=== PATIENT | female | born 1995 | race American Indian/Alaskan Native ===

== ENCOUNTER 2017-04-12 09:58 | Outpatient (CLI) | payer MEDICAID ==
[2017-04-12] MEDS ORDERED: LACTATED RINGERS 0 ML ONE (10:12)
[2017-04-12 10:15] VITALS: BP 116/77
[2017-04-12] MEDS ORDERED: LACTATED RINGERS 500 ML IV ONE ×2 (11:40→12:29)
[2017-04-12 12:13] LABS: Bilirubin,Urine NEG (Negative); Blood,Urine NEG (Negative); Ketones,Urine NEG (Negative); Leukocyte Esterase,Urine NEG (Negative); Nitrite,Urine NEG (Negative); Protein,Urine <15 mg/dL mg/dL (Negative); Urobilinogen,Urine < 2.0 mg/dL (<2.0)
[2017-04-12] MEDS ORDERED: BRETHINE ONE (12:30)
[2017-04-12] MEDS ORDERED: BRETHINE SUB-Q SCH (13:00)
== END 2017-04-12 13:15 | disposition home or self-care (01) ==
LOC: TRG 09:58
PROVIDERS: ATTEND Obstetrics & Gynecology
DX: O47.03 False labor before 37 completed weeks of gestation, third trimester (principal); Z3A.31 31 weeks gestation of pregnancy
CPT/HCPCS: 59025; 81001; 96360; J3105; J7120

== ENCOUNTER 2017-06-08 23:39 | Inpatient (IN) | payer MEDICAID ==
[2017-06-09] MEDS ORDERED: STADOL IV PRN (00:15)
[2017-06-09] MEDS ORDERED: ZOFRAN IV PRN ×2 (00:15→10:50)
[2017-06-09] MEDS ORDERED: SUBLIMAZE IV PRN (00:15)
[2017-06-09] MEDS ORDERED: MINERAL OIL PO PRN (00:15)
[2017-06-09] MEDS ORDERED: BRETHINE IVP PRN (00:15)
[2017-06-09] MEDS ORDERED: XYLOCAINE 2% INFILTRATI ONE (00:15)
[2017-06-09] MEDS ORDERED: ePHEDrine SULFATE IV PRN ×2 (00:15→04:46)
[2017-06-09] MEDS ORDERED: NARCAN 0.4 MG/1 ML IV PRN (00:15)
[2017-06-09] MEDS ORDERED: BRETHINE SUB-Q PRN (00:15)
[2017-06-09] MEDS ORDERED: PHENERGAN PR PRN ×2 (00:15→10:50)
--- NOTE | 2017-06-09 00:19 | History and Physical Report ---
History of Present Illness Date of examination: 06/09/17 Chief complaint: Labor History of present illness: Pt is a 21yo WF EDC 06/09/17; EGA 39 6/7 weeks presents to L&D complaining of RUC's q 3-4mins. She received care at [facility] since 11 weeks, and course has been unremarkable. records are available and GBS is Negative. Past History Past Medical History: no pertinent history Past Surgical History: no surgical history [employer] History: abnormal PAP smear Family/Genetic History: none Social history: no significant social history, single - Obstetrical History Expected Date of Delivery: 06/10/17 Actual Gestation: 39 Week(s) 6 Day(s) : 2 Medications and Allergies Allergies Allergy/AdvReac Type Severity Reaction Status Date / Time Sulfa (Sulfonamide Allergy Swelling Verified 06/08/17 23:51 Antibiotics) Home Medications Medication Instructions Recorded Confirmed Last Taken Type No Known Home Medications [No 06/09/17 06/09/17 Unknown History Reported Home Medications] Review of Systems All systems: negative - Vital Signs Vital signs: Vital Signs Temp Resp 97.9 F 20 06/08/17 23:56 06/08/17 23:56 Temp Pulse Resp BP Pulse Ox 97.9 F 75 20 138/85 97 06/08/17 23:56 06/09/17 00:15 06/08/17 23:56 06/08/17 23:59 06/09/17 00:15 - Physical Exam Breasts: Positive: deferred Cardiovascular: Regular rate Lungs: Positive: Clear to auscultation Abdomen: Positive: normal appearance Genitourinary (Female): Positive: normal external genitalia Vagina: Positive: normal moisture Uterus: Positive: enlarged Extremities: Positive: normal - Obstetrical FHR: category 1 Uterine Contraction Monitor Mode: External Cervical Dilatation: 3.5 Cervical Effacement Percentage: 70 station: -2 Uterine Contraction Pattern: Regular Uterine Tone Measurement Phase: Contraction Uterine Contraction Intensity: Moderate Results Result Diagrams: 06/09/17 00:35 All other labs normal. Assessment and Plan - Patient Problems (1) 39 weeks gestation of Onset Date: 06/09/17 Current Visit: Yes Status: Acute Plan to address problem: A: IUP @ 39 6/7 weeks in labor GBS Negative P: Admit to L&D for expectant vaginal delivery
[2017-06-09] MEDS ORDERED: PITOCin/NS 20 UNIT/1000ML DRIP 20 UNITS/1,000 ML BAG IV SCH ×2 (01:00→11:00)
[2017-06-09] MEDS ORDERED: PITOCin/NS 30 UNIT/500ML 30 UNITS/500 ML BAG IV SCH ×2 (01:00)
[2017-06-09 01:23] LABS: Hematocrit 33.6 % (30.3-42.9); Hemoglobin 11.1 gm/dl (10.1-14.3); Mean Corpuscular HGB Conc 33 % (30-34); Mean Corpuscular Hemoglobin 25 pg (28-32); Mean Corpuscular Volume 76 fl (79-97); Platelet Count 225 K/mm3 (140-440); Red Blood Count 4.45 M/mm3 (3.65-5.03)
[2017-06-09] MEDS: LACTATED RINGERS 1,000 ML IV SCH ×3 (01:30→05:38)
[2017-06-09] MEDS ORDERED: ePHEDrine SULFATE ONE (04:23)
[2017-06-09] MEDS ORDERED: NARCAN 2 MG/2 ML IV PRN (04:46)
--- NOTE | 2017-06-09 04:46 | Anesthesia Consultation ---
Anesthesia Consult and Med Hx Date of service: 06/09/17 - Airway Anesthetic Teeth Evaluation: Good ROM Head & Neck: Adequate Mental/Hyoid Distance: Adequate Mallampati Class: Class II Intubation Access Assessment: Good - Pulmonary Exam CTA: Yes - Cardiac Exam Cardiac Exam: No Murmur - Pre-Operative Health Status ASA Pre-Surgery Classification: ASA2 Proposed Anesthetic Plan: Epidural - Pulmonary Hx Asthma: No COPD: No Hx Pneumonia: No - Cardiovascular System Hx Hypertension: No - Central Nervous System Hx Seizures: No Hx Psychiatric Problems: No - Endocrine Hx Renal Disease: No Hx End Stage Renal Disease: No Hx Hypothyroidism: No Hx Hyperthyroidism: No - Hematic Hx Anemia: Yes Hx Sickle Cell Disease: No - Other Systems Hx Alcohol Use: No
[2017-06-09] MEDS ORDERED: fentaNYL-BUPIV 2 MCG/ML-0.125% 200 MCG/100 ML BAG EPIDURAL SCH (05:00)
--- NOTE | 2017-06-09 10:48 | Procedure Note ---
OB Delivery Note - Delivery Date of Delivery: 06/09/17 Surgeon: ALISA BENTON Estimated blood loss: 300cc - Vaginal Delivery presentation: vertex Delivery position: OP Delivery induction: oxytocin Delivery augmentation: rupture of membranes Delivery monitor: external FHT, external uterine Route of delivery: Delivery placenta: spontaneous Delivery cord: 3 umbilical vessels Episiotomy: none Delivery laceration: 2nd degree (vaginal/perineal) Delivery repair: vicryl Anesthesia: epidural Delivery comments: Infant delivered OP and placed on Mom's chest for [id number] bonding and delayed cord clamping. - Infant A at 1 minute: 8 at 5 minutes: 9 Infant Gender: Male (3623gms)
[2017-06-09] MEDS ORDERED: BENADRYL PO PRN (10:50)
[2017-06-09] MEDS ORDERED: TYLENOL PO PRN (10:50)
[2017-06-09] MEDS ORDERED: LANSINOH TP PRN (10:50)
[2017-06-09] MEDS ORDERED: PHENERGAN PO PRN (10:50)
[2017-06-09] MEDS ORDERED: TUCKS PAD TP PRN (10:50)
[2017-06-09] MEDS ORDERED: DULCOLAX PR PRN (10:50)
[2017-06-09] MEDS ORDERED: NORCO 5/325 PO PRN (10:50)
[2017-06-09] MEDS ORDERED: SODIUM CHLORIDE FLUSH SYRINGE 10 ML IV NR (11:00)
[2017-06-09] MEDS ORDERED: DERMOPLAST TP PRN (16:19)
[2017-06-09] MEDS: MOTRIN PO SCH ×2 (16:48→23:31)
[2017-06-09] MEDS ORDERED: MILK OF MAGNESIA PO PRN (22:00)
[2017-06-09 22:51] LABS: Hematocrit 27.9 % (30.3-42.9); Hemoglobin 9.2 gm/dl (10.1-14.3)
[2017-06-09] MEDS: FEOSOL PO SCH (23:30)
[2017-06-09] MEDS: COLACE PO SCH (23:30)
[2017-06-10] MEDS: MOTRIN PO SCH ×4 (05:13→22:33)
--- NOTE | 2017-06-10 07:38 | Progress Note ---
Assessment and Plan PPD#1 s/p -Doing well P: -Routine care -Anticipate discharge in 24-48 hours - Patient Problems (1) (normal spontaneous vaginal delivery) Current Visit: Yes Status: Acute Subjective - Subjective Date of service: 06/10/17 Principal diagnosis: PPD# 1 Interval history: Since then examined, stable doing well Patient reports: appetite normal, voiding normally, pain well controlled, flatus , ambulating normally, no dizzy ambulation, no nauseated [place]: doing well Objective - Vital Signs Latest vital signs: Vital Signs Temp Pulse Resp BP Pulse Ox 06/10/17 00:00 98.6 F 77 16 134/84 06/09/17 19:15 98.6 F 69 16 129/77 06/09/17 18:30 98.7 F 88 20 131/77 06/09/17 16:48 20 06/09/17 16:28 98.2 F 70 20 137/83 06/09/17 13:30 98.7 F 66 20 142/89 06/09/17 12:27 67 144/72 06/09/17 12:21 69 184/96 06/09/17 12:06 73 124/84 06/09/17 11:51 77 129/81 06/09/17 11:45 76 L 06/09/17 11:36 77 139/92 06/09/17 11:21 76 136/93 06/09/17 11:06 76 130/82 06/09/17 10:51 95 H 132/68 06/09/17 10:37 29 L 0 L 06/09/17 10:36 99 H 139/90 06/09/17 10:21 90 142/88 06/09/17 10:15 90 134/77 06/09/17 10:09 141 H 208/136 06/09/17 09:52 103 H 135/90 06/09/17 09:37 98 H 126/73 06/09/17 09:23 88 88 06/09/17 09:18 77 96 06/09/17 09:16 79 92 06/09/17 09:13 100 H 98 06/09/17 09:08 89 96 06/09/17 09:06 86 146/96 06/09/17 09:03 76 99 06/09/17 08:58 130 H 99 06/09/17 08:53 83 99 06/09/17 08:51 79 144/94 06/09/17 08:48 82 98 06/09/17 08:43 81 99 06/09/17 08:38 82 99 06/09/17 08:37 83 138/91 06/09/17 08:33 83 99 06/09/17 08:28 82 99 06/09/17 08:23 89 99 06/09/17 08:21 83 136/91 06/09/17 08:18 103 H 99 06/09/17 08:13 89 100 06/09/17 08:08 100 H 99 06/09/17 08:07 86 137/95 06/09/17 08:03 93 H 99 06/09/17 07:58 83 99 06/09/17 07:53 71 99 06/09/17 07:52 85 131/99 06/09/17 07:48 75 99 06/09/17 07:43 86 100 Intake and Output 06/09/17 06/10/17 06/10/17 22:59 06:59 14:59 Intake Total 300 Balance 300 Intake: Intake, Free Water 300 - Exam Abdomen: Present: normal appearance, soft. Absent: distention, tenderness, guarding, rigidity Uterus: Present: fundal height below umbilicus. Absent: tenderness Extremities: Present: normal - Labs Labs: Abnormal lab results 06/09/17 Range/Units 22:38 Hgb 9.2 L (10.1-14.3) gm/dl Hct 27.9 L (30.3-42.9) %
--- NOTE | 2017-06-10 07:41 | Discharge Summary ---
Providers - Providers Date of Admission: 06/09/17 01:17 Date of discharge: 06/11/17 Attending physician: ALISA BENTON Primary care physician: ALISA BENTON Hospitalization Reason for admission: active labor, IUP at term Delivery: Episiotomy: none Laceration: 2nd degree Other procedures: none Discharge diagnosis: IUP at term delivered [place] baby: male Condition at discharge: Good Disposition: DC-01 TO HOME OR SELFCARE - Discharge Diagnoses (1) (normal spontaneous vaginal delivery) Status: Acute Plan - Discharge Medications Prescriptions: Ibuprofen [Motrin 600 MG tab] 600 mg PO Q8H PRN #30 tablet PRN Reason: Pain Multivitamin with Iron [Multivitamins with Iron] 1 each PO DAILY #30 tablet - Provider Discharge Summary Activity: no sex for 6 weeks, no heavy lifting 4 weeks, no strenuous exercise Diet: routine Additional instructions: [] Smoking cessation referral if applicable(refer to patient education folder for contact #) [] Refer to [facility]'s [facility] Booklet Call your doctor immediately for: * Fever > 100.5 * Heavy vaginal bleeding ( >1 pad per hour) * Severe persistent headache * Shortness of breath * Reddened, hot, painful area to leg or breast * Drainage or odor from incision. * Keep incision clean and dry at all times and follow doctor's instructions regarding bathing/showering - Follow up plan Follow up: ALISA BENTON MD [Primary Care Provider] - 6 Weeks
[2017-06-10] MEDS: PRENATAL VITAMIN PO SCH (10:19)
[2017-06-10] MEDS: FEOSOL PO SCH ×2 (10:19→22:33)
[2017-06-10] MEDS: COLACE PO SCH ×2 (10:19→22:33)
[2017-06-10] MEDS ORDERED: BOOSTRIX IM ONE (10:50)
[2017-06-10] MEDS ORDERED: M-M-R II VACCINE SUB-Q ONE (10:50)
[2017-06-11] MEDS: MOTRIN PO SCH ×2 (05:26→12:12)
[2017-06-11 10:11] VITALS: BP 136/86
[2017-06-11] MEDS: PRENATAL VITAMIN PO SCH (12:09)
[2017-06-11] MEDS: FEOSOL PO SCH (12:10)
[2017-06-11] MEDS: COLACE PO SCH (12:11)
[2017-06-11] MEDS ORDERED: BOOSTRIX IM ONE (14:09)
== END 2017-06-11 15:00 | disposition home or self-care (01) | DRG 775 ==
LOC: TRG 23:39 → LD 06-09 01:17 → OB 06-09 13:05
PROVIDERS: ADMIT Obstetrics & Gynecology; ATTEND Obstetrics & Gynecology
PROC: 10E0XZZ Delivery of Products of Conception, External Approach (ICD-10-PCS; principal; 2017-06-09)
PROC: 0KQM0ZZ Repair Perineum Muscle, Open Approach (ICD-10-PCS; 2017-06-09)
PROC: 3E033VJ Introduction of Other Hormone into Peripheral Vein, Percutaneous Approach (ICD-10-PCS; 2017-06-09)
PROC: 3E0R3CZ (ICD-10-PCS; 2017-06-09)
PROC: 00HU33Z Insertion of Infusion Device into Spinal Canal, Percutaneous Approach (ICD-10-PCS; 2017-06-09)
PROC: 3E0234Z Introduction of Serum, Toxoid and Vaccine into Muscle, Percutaneous Approach (ICD-10-PCS; 2017-06-11)
DX: O70.1 Second degree perineal laceration during delivery (principal); Z37.0 Single live birth; Z3A.39 39 weeks gestation of pregnancy; Z23 Encounter for immunization; Z88.2 Allergy status to sulfonamides
CPT/HCPCS: 36415; 85014; 85018; 85027; 86850; 86900; 86901; 90471; 90715; 99211; G0463; J0595; J2590; J7120

== ENCOUNTER 2018-11-14 10:59 | Emergency (ER) | payer MEDICAID ==
[2018-11-14 11:54] LABS: HCG Qualitative,Urine Positive (Negative)
[2018-11-14 12:03] LABS: Bacteria,Urine 4+ /HPF (Negative); Bilirubin,Urine NEG (Negative); Blood,Urine MOD (Negative); Color,Urine Yellow (Yellow); Mucus,Urine FEW /HPF; Protein,Urine <15 mg/dL mg/dL (Negative); Urobilinogen,Urine < 2.0 mg/dL (<2.0)
--- NOTE | 2018-11-14 12:09 | Emergency Department Report ---
ED Female HPI - General Chief complaint: Urogenital-Female Stated complaint: UTI Source: patient Mode of arrival: Ambulatory Limitations: No Limitations - History of Present Illness Initial comments: This is a 23-year-old female presents with dysuria and pelvic pain for 3 days. Patient reports back pain. 2 days ago. Last menstrual period 10/14/2018, A1. Patient reports pelvic pain is intermittent cramping sensation. Patient reports taken 2 tests, one negative and one positive a few days ago. She is concerned of possible . She denies vaginal discharge, frequency, urgency, nausea or vomiting. MD Complaint: dysuria, pelvic pain Onset/Timin -: days(s) Location: suprapubic Radiation: non-radiating Severity: mild Severity scale (0 -10): 2 Quality: cramping, burning Consistency: intermittent Improves with: none Worsens with: urination Are you Now?: No Last Menstrual Period: 10/14/18 EDC: 07/21/19 Associated Symptoms: dysuria. denies: vaginal discharge, vaginal bleeding, abdominal pain, nausea/vomiting, fever/chills, headaches, loss of appetite, hematuria, rash, seizure, shortness of breath, syncope, weakness - Related Data Sexually active: Yes : 2 Para: 1 A: 1 (miscarriage) Previous Rx's Medication Instructions Recorded Last Taken Type Ibuprofen [Motrin 600 MG tab] 600 mg PO Q8H PRN #30 tablet 06/10/17 Unknown Rx Multivitamin with Iron 1 each PO DAILY #30 tablet 06/10/17 Unknown Rx [Multivitamins with Iron] Nitrofurantoin Macrocrystal 100 mg PO BID #10 capsule 11/14/18 Unknown Rx [Nitrofurantoin] Allergies Allergy/AdvReac Type Severity Reaction Status Date / Time Sulfa (Sulfonamide Allergy Swelling Verified 06/08/17 23:51 Antibiotics) ED Review of Systems ROS: Stated complaint: UTI Other details as noted in HPI Constitutional: denies: chills, fever Respiratory: denies: cough, shortness of breath, wheezing Cardiovascular: denies: chest pain, palpitations Gastrointestinal: abdominal pain. denies: nausea, diarrhea Genitourinary: dysuria. denies: urgency, frequency, discharge Musculoskeletal: denies: back pain, joint swelling, arthralgia Skin: denies: rash, lesions Neurological: denies: headache, weakness, paresthesias Psychiatric: denies: anxiety, depression ED Past Medical Hx - Past Medical History Hx Hypertension: No Hx Congestive Heart Failure: No Hx Diabetes: No Hx Deep Vein Thrombosis: No Hx Renal Disease: No Hx Sickle Cell Disease: No Hx Seizures: No Hx Asthma: No Hx COPD: No Hx HIV: No Additional medical history: 9 weeks - Social History Smoking Status: Never Smoker Substance Use Type: None - Medications Home Medications: Home Medications Medication Instructions Recorded Confirmed Last Taken Type Ibuprofen [Motrin 600 MG tab] 600 mg PO Q8H PRN #30 tablet 06/10/17 Unknown Rx Multivitamin with Iron 1 each PO DAILY #30 tablet 06/10/17 Unknown Rx [Multivitamins with Iron] Nitrofurantoin Macrocrystal 100 mg PO BID #10 capsule 11/14/18 Unknown Rx [Nitrofurantoin] ED Physical Exam - General Limitations: No Limitations General appearance: alert, in no apparent distress, obese - Respiratory Respiratory exam: Present: normal lung sounds bilaterally. Absent: respiratory distress - Cardiovascular Cardiovascular Exam: Present: regular rate, normal rhythm. Absent: systolic murmur, diastolic murmur, rubs, gallop - GI/Abdominal GI/Abdominal exam: Present: soft, tenderness (suprapubic tenderness), normal bowel sounds. Absent: distended, guarding, rebound, rigid, organomegaly, mass - Back Exam Back exam: Absent: CVA tenderness (R), CVA tenderness (L) - Neurological Exam Neurological exam: Present: alert, oriented X3, normal gait - Psychiatric Psychiatric exam: Present: normal affect, normal mood - Skin Skin exam: Present: warm, dry, intact, normal color. Absent: rash ED Course Vital Signs 11/14/18 11:09 Temperature 98.4 F Pulse Rate 84 Respiratory 16 Rate Blood Pressure 117/68 O2 Sat by Pulse 98 Oximetry ED Medical Decision Making - Lab Data Lab Results 11/14/18 11/14/18 Range/Units 11:24 12:22 HCG, Quant 591.8 H (0-4) mIU/mL Urine Color Yellow (Yellow) Urine Turbidity Clear (Clear) Urine pH 6.0 (5.0-7.0) Ur Specific [place] 1.008 (1.003-1.030) Urine Protein <15 mg/dl (Negative) mg/dL Urine Glucose (UA) Neg (Negative) mg/dL Urine Ketones Neg (Negative) mg/dL Urine Blood Mod (Negative) Urine Nitrite Neg (Negative) Ur Reducing Substances Not Reportable Urine Bilirubin Neg (Negative) Urine Ictotest Not Reportable Urine Urobilinogen < 2.0 (<2.0) mg/dL Ur Leukocyte Esterase Sm (Negative) Urine WBC (Auto) 30.0 H (0.0-6.0) /HPF Urine RBC (Auto) 11.0 (0.0-6.0) /HPF U Epithel Cells (Auto) 2.0 (0-13.0) /HPF Urine Bacteria (Auto) 4+ (Negative) /HPF Urine Mucus Few /HPF Urine HCG, Qual Positive A (Negative) - Radiology Data Radiology results: report reviewed ULTRASOUND OB LESS THAN 14 WEEKS - TRANSABDOMINAL AND TRANSVAGINAL INDICATION: Suprapubic tenderness, pain during urinating. Evaluate for . Positive UPT. COMPARISON: None similar during this gestation. FINDINGS: Transabdominal and transvaginal pelvic sonography performed in this patient with LMP of 10/14/2018 and estimated menstrual age of 4 weeks and 3 days. An anteverted uterus measuring approximately 9.6 x 5.4 x 6.8 cm demonstrates fundal endometrial thickening up to 2.7 cm as on endovaginal image 4. No gestational sac identified. Closed cervix. Minimal pelvic free fluid. Right ovary is 3.3 x 2.6 x 4.2 cm and demonstrates a 1.9 cm complex intrinsic cystic area, endovaginal image 14. Left ovary is 2.7 x 1.6 x 3.7 cm and demonstrates approximately 3 x 2 cm parovarian cyst, endovaginal image 23. CONCLUSION: 1. No sonographic evidence of a viable intrauterine gestation at this time with nonspecific fundal endometrial thickness noted, as described. 2. Both ovaries identified, as above. Please also correlate clinically, with serial serum beta-hCG values and/or followup sonogram, as warranted. Thank you for the opportunity to participate in this patient's care. - Medical Decision Making This is a 23 y.o. female presents with dysuria and pelvic pain x 3 days. Patient was examined by me. Vitals are normal and patient is in no acute distress. Obtained a urinalysis, urine hCG, hCG quant, and OB ultrasound. Quant 591.8, positive hCG, urinalysis elevated WBCs, small leukocyte esterase, and blood. 1. No sonographic evidence of a viable intrauterine gestation at this time with nonspecific fundal endometrial thickness noted, as described. 2. Both ovaries identified, as above. Please also correlate clinically, with serial serum beta-hCG values and/or followup sonogram, as warranted. Start macrobid 100 mg po bid x 5 days. Patient instructed to have repeat hCG quant in 48 hours with [facility] or in ER to r/o ectopic . Patient discharged home in stable condition. Critical care attestation.: If time is entered above; I have spent that time in minutes in the direct care of this critically ill patient, excluding procedure time. ED Disposition Clinical Impression: Incidental confirmed, Threatened Pelvic pain affecting Qualifiers: Trimester: first trimester Qualified Code(s): O26.891 - Other specified pregna ncy related conditions, first trimester; R10.2 - Pelvic and perineal pain Acute cystitis during Qualifiers: Trimester: first trimester Qualified Code(s): O23.11 - Infections of bladder in , first trimester Disposition: DC-01 TO HOME OR SELFCARE Is pt being admited?: No Does the pt Need Aspirin: No Condition: Stable Instructions: Threatened Miscarriage (ED), Urinary Tract Infection in Women (ED) Additional Instructions: Have repeat hCG quant labs in 48 hours with [facility] or ER. Your hCG quantitative on this visit was 591.8. Increase fluid intake to 1L to 2L daily. Complete full course of antibiotics as prescribed. Follow up with [facility] in 24-48 hours. Return to ER if increased vaginal bleeding, abdominal pain, and low back pain. Prescriptions: Nitrofurantoin Macrocrystal [Nitrofurantoin] 100 mg PO BID #10 capsule Referrals: LUIS MARK MD [Primary Care Provider] - 3-5 Days [facility] [Provider Group] - 3-5 Days [facility] [Provider Group] - 3-5 Days [facility] [Provider Group] - 3-5 Days Forms: Work/School Release Form(ED) Time of Disposition: 13:51
--- NOTE | 2018-11-14 13:21 | Ultrasound Report ---
ULTRASOUND OB LESS THAN 14 WEEKS - TRANSABDOMINAL AND TRANSVAGINAL INDICATION: Suprapubic tenderness, pain during urinating. Evaluate for . Positive UPT. COMPARISON: None similar during this gestation. FINDINGS: Transabdominal and transvaginal pelvic sonography performed in this patient with LMP of 10/14/2018 and estimated menstrual age of 4 weeks and 3 days. An anteverted uterus measuring approximately 9.6 x 5.4 x 6.8 cm demonstrates fundal endometrial thickening up to 2.7 cm as on endovaginal image 4. No gestational sac identified. Closed cervix. Minimal pelvic free fluid. Right ovary is 3.3 x 2.6 x 4.2 cm and demonstrates a 1.9 cm complex intrinsic cystic area, endovaginal image 14. Left ovary is 2.7 x 1.6 x 3.7 cm and demonstrates approximately 3 x 2 cm parovarian cyst, endovaginal image 23. CONCLUSION: 1. No sonographic evidence of a viable intrauterine gestation at this time with nonspecific fundal endometrial thickness noted, as described. 2. Both ovaries identified, as above. Please also correlate clinically, with serial serum beta-hCG values and/or followup sonogram, as warranted. Thank you for the opportunity to participate in this patient's care.
[2018-11-16 11:55] VITALS: BP 117/68
== END 2018-11-14 14:00 | disposition home or self-care (01) ==
LOC: ED 10:59
DX: O20.0 Threatened abortion (principal); O23.11 Infections of bladder in pregnancy, first trimester; Z3A.01 Less than 8 weeks gestation of pregnancy
CPT/HCPCS: 36415; 76801; 76817; 81001; 81025; 84702

== ENCOUNTER 2020-08-02 22:38 | Outpatient (CLI) | payer MEDICAID ==
[2020-08-02 23:31] VITALS: BP 128/88
== END 2020-08-03 01:00 | disposition home or self-care (01) ==
LOC: TRG 22:38 → APU 22:39 → TRG 08-03 01:00
PROVIDERS: ATTEND Obstetrics & Gynecology
DX: Z34.03 Encounter for supervision of normal first pregnancy, third trimester (principal); Z3A.38 38 weeks gestation of pregnancy
CPT/HCPCS: 59025